=== PATIENT | male | born 1965 | race Caucasian/White ===

== ENCOUNTER 2017-03-09 16:23 | Emergency (ER) | payer BC, MEDICAID ==
[2017-03-09] MEDS ORDERED: TAMSULOSIN 0.4 MG CAP.ER.24H PO STA (17:07)
[2017-03-09] MEDS ORDERED: ONDANSETRON 4 MG/2 ML VIAL IVP STA (17:07)
[2017-03-09] MEDS ORDERED: SODIUM CHLORIDE 0.9% 1,000 ML IV STA (17:07)
[2017-03-09] MEDS ORDERED: KETOROLAC 30 MG/ML 1 ML VIAL IVP STA (17:07)
--- NOTE | 2017-03-09 17:13 | ED ---
General Adult HPI - General Chief complaint: Urogenital Stated complaint: Blood In Urine Time Seen by Provider: 03/09/17 17:01 Source: patient, RN notes reviewed Mode of arrival: ambulatory - History of Present Illness Initial comments: 52-year-old male presents to the emergency Department chief complaint of testicular pain and blood in the urine. Patient denies any history of kidney stones. Patient admits some nausea he states the pain is just a burning type pain and difficulty urinating. Patient states he has no other health history. Patient states she was concerned due to his symptoms were thought that he should be evaluated. Patient states he does not want any narcotic pain medication.Patient denies any recent fever, chills, shortness of breath, chest pain, back pain, vomiting, numbness or tingling, dysuria or hematuria, constipation or diarrhea, headaches or visual changes, or any other current symptoms. - Related Data Home Medications Medication Instructions Recorded Confirmed Aspirin [Adult Low Dose Aspirin EC] 81 mg PO QAM 03/09/17 03/09/17 Lisinopril-Hctz 10-12.5 mg 1 tab PO QAM 03/09/17 03/09/17 [Zestoretic 10-12.5] Pantoprazole [Protonix] 40 mg PO QAM 03/09/17 03/09/17 Previous Rx's Medication Instructions Recorded Levofloxacin [Levaquin] 500 mg PO DAILY #5 tab 03/09/17 Phenazopyridine [Pyridium] 100 mg PO TID #6 tablet 03/09/17 Allergies Allergy/AdvReac Type Severity Reaction Status Date / Time No Known Allergies Allergy Verified 03/09/17 17:22 Review of Systems ROS Statement: Those systems with pertinent positive or pertinent negative responses have been documented in the HPI. ROS Other: All systems not noted in ROS Statement are negative. Past Medical History Past Medical History: Hypertension Additional Past Medical History / Comment(s): HEART VALVE PROBLEM- PT UNSURE WHAT IT IS History of Any Multi-Drug Resistant Organisms: None Reported Additional Past Surgical History / Comment(s): RIGHT ACL Past Psychological History: No Psychological Hx Reported Smoking Status: Former smoker Past Alcohol Use History: Occasional Past Drug Use History: None Reported General Exam General appearance: alert, in distress (Mild) Head exam: Present: atraumatic, normocephalic, normal inspection ENT exam: Present: normal exam, mucous membranes moist Neck exam: Present: normal inspection. Absent: tenderness, meningismus, lymphadenopathy Respiratory exam: Present: normal lung sounds bilaterally. Absent: respiratory distress, wheezes, rales, rhonchi, stridor Cardiovascular Exam: Present: regular rate, normal rhythm, normal heart sounds. Absent: systolic murmur, diastolic murmur, rubs, gallop, clicks GI/Abdominal exam: Present: soft, normal bowel sounds. Absent: distended, tenderness, guarding, rebound, rigid Extremities exam: Present: normal inspection, full ROM, normal capillary refill. Absent: tenderness, pedal edema, joint swelling, calf tenderness Neurological exam: Present: alert, oriented X3 Psychiatric exam: Present: normal affect, normal mood Skin exam: Present: warm, dry, intact, normal color. Absent: rash Course Vital Signs 03/09/17 03/09/17 16:38 19:16 Temperature 97.9 F 97.4 F L Pulse Rate 126 H 71 Respiratory 18 16 Rate Blood Pressure 131/89 121/69 O2 Sat by Pulse 96 95 Oximetry Medical Decision Making - Medical Decision Making 52-year-old male presents emergency department with a chief complaint of testicular pain and hematuria. Patient's lab work is reviewed additional UTI. Patient was given antibiotics here and he'll be sent home on oral antibiotics 3 discussed follow-up with urology and return parameters. We discussed all patient's family's questions. They stated they understood plan. All questions have been answered. They will be discharged home. - Lab Data Result diagrams: 03/09/17 17:35 03/09/17 17:35 Lab Results 03/09/17 03/09/17 03/09/17 Range/Units 17:35 17:35 17:35 WBC 14.0 H (3.8-10.6) k/uL RBC 5.17 (4.30-5.90) m/uL Hgb 17.6 H (13.0-17.5) gm/dL Hct 50.7 (39.0-53.0) % MCV 98.2 (80.0-100.0) fL MCH 34.1 (25.0-35.0) pg MCHC 34.7 (31.0-37.0) g/dL RDW 13.2 (11.5-15.5) % Plt Count 220 (150-450) k/uL Neutrophils % 76 % Lymphocytes % 17 % Monocytes % 5 % Eosinophils % 1 % Basophils % 1 % Neutrophils # 10.6 H (1.3-7.7) k/uL Lymphocytes # 2.3 (1.0-4.8) k/uL Monocytes # 0.7 (0-1.0) k/uL Eosinophils # 0.1 (0-0.7) k/uL Basophils # 0.1 (0-0.2) k/uL Sodium 139 (137-145) mmol/L Potassium 4.1 (3.5-5.1) mmol/L Chloride 105 (98-107) mmol/L Carbon Dioxide 20 L (22-30) mmol/L Anion Gap 14 mmol/L BUN 15 (9-20) mg/dL Creatinine 1.02 (0.66-1.25) mg/dL Est GFR (MDRD) Af Amer >60 (>60 ml/min/1.73 sqM) Est GFR (MDRD) Non-Af >60 (>60 ml/min/1.73 sqM) Glucose 189 H (74-99) mg/dL Calcium 10.0 (8.4-10.2) mg/dL Total Bilirubin 1.3 (0.2-1.3) mg/dL AST 39 (17-59) U/L ALT 57 (21-72) U/L Alkaline Phosphatase 106 (38-126) U/L Total Protein 8.3 H (6.3-8.2) g/dL Albumin 5.0 (3.5-5.0) g/dL Amylase 61 (30-110) U/L Lipase 97 (23-300) U/L Urine Color Dark Red Urine Appearance Turbid (Clear) Urine pH 6.5 (5.0-8.0) Ur Specific [place] 1.028 (1.001-1.035) Urine Protein 3+ H (Negative) Urine Glucose (UA) 3+ H (Negative) Urine Ketones Negative (Negative) Urine Blood Large H (Negative) Urine Nitrite Negative (Negative) Urine Bilirubin Negative (Negative) Urine Urobilinogen <2.0 (<2.0) mg/dL Ur Leukocyte Esterase Moderate H (Negative) Urine RBC >182 H (0-5) /hpf Urine WBC >182 H (0-5) /hpf Urine WBC Clumps Many H (None) /hpf Ur Squamous Epith Cells 13 H (0-4) /hpf Disposition Clinical Impression: UTI (urinary tract infection), Hydrocele Disposition: TRANSFER TO PSYCH HOSP/UNIT Condition: Stable Instructions: Urinary Tract Infection in Men (ED) Additional Instructions: Please use medication as discussed. Please follow up with family doctor if symptoms have not improved over the next two days. Please return to the emergency room if your symptoms increase or worsen or for any other concerns. Prescriptions: Levofloxacin [Levaquin] 500 mg PO DAILY #5 tab Phenazopyridine [Pyridium] 100 mg PO TID #6 tablet Referrals: Nina Powell MD [Primary Care Provider] - 1-2 days Venancio Lobo MD [STAFF PHYSICIAN] - 1-2 days Time of Disposition: 19:28
[2017-03-09 17:52] LABS: Basophils # (A) 0.1 k/uL (0-0.2); Basophils % (A) 1 %; CH 35.3; CHCM 36.1; Eosinophils # (A) 0.1 k/uL (0-0.7); Eosinophils % (A) 1 %; HCT 50.7 % (39.0-53.0); HDW 2.49; HGB 17.6 gm/dL (13.0-17.5); Luc # (Auto) 0.18; Luc % (Auto) 1; Lymphocytes # (A) 2.3 k/uL (1.0-4.8); Lymphocytes % (A) 17 %; MCH 34.1 pg (25.0-35.0); MCHC 34.7 g/dL (31.0-37.0); MCV 98.2 fL (80.0-100.0); Mean Platelet Volume 6.9; Monocytes # (A) 0.7 k/uL (0-1.0); Monocytes % (A) 5 %; Neutrophils # (A) 10.6 k/uL (1.3-7.7); Neutrophils % (A) 76 %; RBC 5.17 m/uL (4.30-5.90); RDW 13.2 % (11.5-15.5); WBC (Perox) 15.33
[2017-03-09 17:57] LABS: Appearance,Urine Turbid (Clear); Bilirubin,Urine Negative (Negative); Glucose,Urine (UA) 3+ (Negative); Ketones,Urine Negative (Negative); Leukocyte Esterase,Urine Moderate (Negative); Nitrite,Urine Negative (Negative); PH, Urine 6.5 (5.0-8.0); Particle Count 8116; Protein,Urine 3+ (Negative); RBC,Urine >182 /hpf (0-5); Specific Gravity,Urine 1.028 (1.001-1.035); Squamous Epithelial Cell,Urine 13 /hpf (0-4); UA Billing (MACRO vs. MICRO) MICRO; Urobilinogen,Urine <2.0 mg/dL (<2.0); WBC,Urine >182 /hpf (0-5)
[2017-03-09 18:03] LABS: ALT 57 U/L (21-72); AST 39 U/L (17-59); Alkaline Phosphatase 106 U/L (38-126); Amylase 61 U/L (30-110); Anion Gap 14 mmol/L; Blood Urea Nitrogen 15 mg/dL (9-20); Carbon Dioxide 20 mmol/L (22-30); Chloride 105 mmol/L (98-107); Glucose 189 mg/dL (74-99); Non-African American GFR(MDRD) >60 (>60 ml/min/1.73 sqM); Potassium 4.1 mmol/L (3.5-5.1); Sodium 139 mmol/L (137-145); Total Bilirubin 1.3 mg/dL (0.2-1.3); Total Protein 8.3 g/dL (6.3-8.2)
--- NOTE | 2017-03-09 18:38 | CT ---
EXAMINATION TYPE: CT abdomen pelvis wo con DATE OF EXAM: 03/09/2017 6:07 PM COMPARISON: NONE HISTORY: Testicular pain with gross hematuria. CT DLP: 1086.00 mGycm Automated exposure control for dose reduction was used. TECHNIQUE: Helical acquisition of images was performed from the lung bases through the pelvis. FINDINGS: LUNG BASES: No significant abnormality is appreciated. LIVER/GB: There is diffuse hypoattenuation of the hepatic parenchyma most compatible with underlying hepatic steatosis. PANCREAS: No significant abnormality is seen. SPLEEN: No significant abnormality is seen. ADRENALS: No significant abnormality is seen. KIDNEYS: Right renal cyst is seen at the mid pole measuring 12 mm. FREE AIR: No free air is visualized RETROPERITONEAL ADENOPATHY: None visualized REPRODUCTIVE ORGANS: No significant abnormality is seen URINARY BLADDER: No significant abnormality is seen. PELVIC ADENOPATHY: None visualized. OSSEOUS STRUCTURES: No significant abnormality is seen. Sclerotic focus is seen within the right edgar ac bone, most likely relating to a benign bone island. BOWEL: No significant abnormality is seen. OTHER: Mild atheromatous changes are seen of the abdominal aorta. Abdominal aorta is of normal course and caliber. Fluid attenuation is seen within the visualized portion of the left hemiscrotum. IMPRESSION: 1. HEPATIC STEATOSIS. 2. PARTIAL VISUALIZATION OF THE LEFT SCROTUM CONTAINING FLUID, MOST LIKELY RELATED TO A HYDROCELE.
--- NOTE | 2017-03-09 19:17 | US ---
EXAMINATION TYPE: US scrotum with doppler. Grayscale and color Doppler Duplex imaging performed of yesenia bacon scrotum. DATE OF EXAM: 03/09/2017 7:06 PM COMPARISON: CT in PACS CLINICAL HISTORY: Pain. EXAM MEASUREMENTS: TESTICLES: Right Testicle: 4.4 x 1.9 x 2.6 cm Left Testicle: 4.1 x 1.8 x 2.8 cm EPIDIDYMIS HEAD: Right Epididymis: 0.8 cm Left Epididymis: 0.8 cm Doppler performed to assess for testicular vascularity; good bilateral color flow and waveforms are s een. There is no evidence of testicular torsion. Presence of hydroceles: Yes, small on the left Presence of varicoceles: Yes, on the right IMPRESSION: 1. Small left hydrocele. 2. Right varicocele. No evidence of obstruction on CT. Follow-up is recommended with urology on a non emergent basis.
[2017-03-09 19:18] VITALS: RESP 16
[2017-03-09 19:46] VITALS: BP 108/65; PULSE 94; TEMP 97.6
== END 2017-03-09 20:06 | disposition home or self-care (01) ==
LOC: EC 16:23
DX: N39.0 Urinary tract infection, site not specified (principal); N43.3 Hydrocele, unspecified; I10 Essential (primary) hypertension; Z87.891 Personal history of nicotine dependence; Z79.82 Long term (current) use of aspirin; Z79.899 Other long term (current) drug therapy
CPT/HCPCS: 99284; 96365; 96375 ×2; 96361; 36415; 80053; 82150; 83690; 85025; 81001; 87040; 87086; 93975; 76870; 74176; J2405; J0696; J1885; 87077; 87186

== ENCOUNTER → 2017-06-13 | Outpatient (CLI) | payer BC ==
[2017-06-13 07:56] LABS: Basophils % (A) 0 %; CH 34.7; CHCM 34.8; Eosinophils # (A) 0.1 k/uL (0-0.7); Eosinophils % (A) 1 %; HCT 50.2 % (39.0-53.0); HDW 2.48; HGB 16.7 gm/dL (13.0-17.5); Luc # (Auto) 0.16; Luc % (Auto) 3; Lymphocytes % (A) 30 %; MCH 33.4 pg (25.0-35.0); MCHC 33.3 g/dL (31.0-37.0); MCV 100.1 fL (80.0-100.0); Macrocytosis Slight; Mean Platelet Volume 7.6; Monocytes # (A) 0.4 k/uL (0-1.0); Monocytes % (A) 6 %; Neutrophils % (A) 60 %; RBC 5.01 m/uL (4.30-5.90); RDW 14.1 % (11.5-15.5); WBC 6.6 k/uL (3.8-10.6); WBC (Perox) 6.48
[2017-06-13 09:03] LABS: ALT 44 U/L (21-72); AST 20 U/L (17-59); Alkaline Phosphatase 130 U/L (38-126); Anion Gap 9 mmol/L; Blood Urea Nitrogen 13 mg/dL (9-20); Calcium 9.8 mg/dL (8.4-10.2); Carbon Dioxide 25 mmol/L (22-30); Chloride 104 mmol/L (98-107); Cholesterol 284 mg/dL (<200); Glucose 300 mg/dL (74-99); HDL Cholesterol 61 mg/dL (40-60); Non-African American GFR(MDRD) >60 (>60 ml/min/1.73 sqM); Potassium 4.2 mmol/L (3.5-5.1); Sodium 138 mmol/L (137-145); Total Bilirubin 1.1 mg/dL (0.2-1.3); Total Protein 7.1 g/dL (6.3-8.2)
[2017-06-13 14:16] LABS: Hemoglobin A1C 12.7 % (4.2-6.1)
== END | disposition home or self-care (01) ==
LOC: LABWHC1 07:00
PROVIDERS: ATTEND Family Medicine
DX: E78.2 Mixed hyperlipidemia (principal); I10 Essential (primary) hypertension; R73.9 Hyperglycemia, unspecified
CPT/HCPCS: 36415; 80053; 80061; 83036; 85025

== ENCOUNTER → 2017-10-16 | Outpatient (CLI) | payer BC ==
[2017-10-16 08:17] LABS: Basophils # (A) 0.1 k/uL (0-0.2); Basophils % (A) 1 %; Eosinophils # (A) 0.1 k/uL (0-0.7); Eosinophils % (A) 1 %; HDW 2.48; HGB 15.6 gm/dL (13.0-17.5); Luc # (Auto) 0.13; Luc % (Auto) 2; Lymphocytes # (A) 2.4 k/uL (1.0-4.8); Lymphocytes % (A) 38 %; MCH 33.1 pg (25.0-35.0); MCHC 33.9 g/dL (31.0-37.0); MCV 97.5 fL (80.0-100.0); Mean Platelet Volume 6.9; Monocytes # (A) 0.4 k/uL (0-1.0); Monocytes % (A) 6 %; Neutrophils # (A) 3.2 k/uL (1.3-7.7); Neutrophils % (A) 52 %; RBC 4.72 m/uL (4.30-5.90); RDW 12.5 % (11.5-15.5); WBC 6.1 k/uL (3.8-10.6); WBC (Perox) 5.77
[2017-10-16 08:25] LABS: ALT 36 U/L (21-72); AST 26 U/L (17-59); Alkaline Phosphatase 67 U/L (38-126); Anion Gap 10 mmol/L; Blood Urea Nitrogen 18 mg/dL (9-20); Carbon Dioxide 27 mmol/L (22-30); Chloride 103 mmol/L (98-107); Cholesterol 211 mg/dL (<200); Glucose 105 mg/dL (74-99); HDL Cholesterol 71 mg/dL (40-60); Non-African American GFR(MDRD) >60 (>60 ml/min/1.73 sqM); Potassium 4.4 mmol/L (3.5-5.1); Sodium 140 mmol/L (137-145); Total Bilirubin 0.7 mg/dL (0.2-1.3); Total Protein 7.3 g/dL (6.3-8.2)
== END | disposition home or self-care (01) ==
LOC: LABWHC1 06:34
PROVIDERS: ATTEND Family Medicine
DX: E78.2 Mixed hyperlipidemia (principal); I10 Essential (primary) hypertension; E11.65 Type 2 diabetes mellitus with hyperglycemia
CPT/HCPCS: 36415; 80053; 80061; 83036; 85025

== ENCOUNTER → 2022-10-21 | Outpatient (CLI) | payer BC ==
[2022-10-21 12:08] LABS: African American GFR (CKD) >90 (>60 ml/min/1.73 sqM); Blood Urea Nitrogen 15 mg/dL (9-20); Non-African American GFR(CKD) >90 (>60 ml/min/1.73 sqM)
--- NOTE | 2022-10-21 12:44 | CT ---
EXAMINATION TYPE: CT soft tissue neck w con CT DLP: 483.9 mGycm, Automated exposure control for dose reduction was used. DATE OF EXAM: 10/21/2022 12:38 PM COMPARISON: None. 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 Axial sections with coronal and sagittal reformats were obtained. FINDINGS: Brain: Visualized portions are grossly unremarkable. Orbits: Unremarkable Sinuses: The mastoid air cells are clear. Mild mucosal thickening of the right maxillary sinus. Suprahyoid Neck: The oropharynx, oral cavity, parapharyngeal and retropharyngeal spaces are clear and symmetric. The nasopharynx is unremarkable. Bilateral tonsilliths. Infrahyoid Neck: The larynx, hypopharynx, and supraglottic area are clear and symmetric. Parotid Glands: Unremarkable. Submandibular Glands: Unremarkable. Musculoskeletal: No acute osseous pathology. No aggressive osseous lesion. Lymph nodes: Multiple nonenlarged lymph nodes are seen along both anterior chains of the neck. Vascular structures: Minimal atherosclerotic calcifications of the internal carotid arteries. Thoracic Inlet/airway: Airway is patent. Moderate centrilobular emphysematous changes of the visualiz ed lungs. Soft tissues/Thyroid: Defect along the lower lip which may represent known squamous cell carcinoma. T hyroid and remainder of the soft tissues are unremarkable. Other: none. IMPRESSION 1. No evidence for metastatic disease within the visualized neck. No lymphadenopathy. 2. Moderate COPD changes.
== END | disposition home or self-care (01) ==
LOC: RADCTMAIN 11:29
PROVIDERS: ATTEND Otolaryngology
DX: C44.02 Squamous cell carcinoma of skin of lip (principal); J44.9 Chronic obstructive pulmonary disease, unspecified
CPT/HCPCS: 82565; 84520; 70491; 36415; Q9967

== ENCOUNTER 2022-11-13 11:12 | Day surgery (SDC) | payer BC ==
[~2022-11-13 11:12] MED LIST: DEXAMETHASONE SOD PHOSPHATE 4 MG/ML 1 ML VIAL IV ONE; DEXAMETHASONE SOD PHOSPHATE 4 MG/ML 1 ML VIAL IV PRN; FAMOTIDINE 20 MG/2 ML VIAL IV PRN; HYDROmorphone 0.5 MG/0.5 ML SYRINGE IVP PRN; LACTATED RINGERS 1,000 ML IV SCH; LIDOCAINE 1% (10MG/ML) FOR IV START INTRADERMA PRN; MIDAZOLAM 2 MG/2 ML VIAL IV PRN; ONDANSETRON 4 MG/2 ML VIAL IVP ONE; ONDANSETRON 4 MG/2 ML VIAL IVP PRN; metroNIDAZOLE-NS PMX 500 MG in SALINE 1 100ML.BAG IVPB PRN
[2022-11-13] MEDS ORDERED: LACTATED RINGERS 1,000 ML IV ONE ×2 (11:38→16:03)
[2022-11-13 11:50] LABS: Glucose,Whole Blood 117 mg/dL (70-110)
[2022-11-13 12:11] LABS: Basophils % (A) 1 %; Eosinophils # (A) 0.1 k/uL (0-0.7); Eosinophils % (A) 1 %; HCT 47.7 % (39.0-53.0); HGB 16.6 gm/dL (13.0-17.5); Lymphocytes # (A) 2.2 k/uL (1.0-4.8); Lymphocytes % (A) 33 %; MCH 33.6 pg (25.0-35.0); MCHC 34.7 g/dL (31.0-37.0); MCV 96.8 fL (80.0-100.0); Mean Platelet Volume 7.4; Monocytes # (A) 0.5 k/uL (0-1.0); Monocytes % (A) 7 %; Neutrophils # (A) 3.8 k/uL (1.3-7.7); Neutrophils % (A) 56 %; Platelet Count 157 k/uL (150-450); RBC 4.93 m/uL (4.30-5.90); RDW 12.6 % (11.5-15.5); WBC 6.7 k/uL (3.8-10.6)
[2022-11-13 12:32] LABS: African American GFR (CKD) >90 (>60 ml/min/1.73 sqM); Anion Gap 9 mmol/L; Blood Urea Nitrogen 13 mg/dL (9-20); Calcium 9.3 mg/dL (8.4-10.2); Carbon Dioxide 23 mmol/L (22-30); Chloride 108 mmol/L (98-107); Glucose 123 mg/dL (74-99); Non-African American GFR(CKD) >90 (>60 ml/min/1.73 sqM); Potassium 4.1 mmol/L (3.5-5.1); Sodium 140 mmol/L (137-145)
[2022-11-13] MEDS ORDERED: MIDAZOLAM 2 MG/2 ML VIAL ONE (14:19)
[2022-11-13] MEDS ORDERED: LIDOCAINE 2% INJ 20 MG/ML (2 ML VIAL) ONE (14:19)
[2022-11-13] MEDS ORDERED: PROPOFOL 10 MG/ML 20 ML VIAL IV ONE (14:19)
[2022-11-13] MEDS ORDERED: fentaNYL (PF) 50 MCG/ML 2 ML AMP ONE (14:19)
[2022-11-13] MEDS ORDERED: SUCCINYLCHOLINE CHLORIDE 200 MG/10 ML VIAL IV ONE (14:19)
[2022-11-13] MEDS ORDERED: LIDOCAINE 1%-EPI 1:100,000 20 ML VIAL SQ ONE ×4 (14:20)
[2022-11-13] MEDS ORDERED: FERRIC SUBSULFATE (MONSELS) JAR TOPICAL ONE (15:23)
[2022-11-13 16:34] VITALS: TEMP 97.3
--- NOTE | 2022-11-13 16:41 | P.OP ---
Date of Procedure: 11/13/22 Preoperative Diagnosis: 4.1 x 4.2 cm right lower lip cancer 4.2 x 2 cm left nasal squamous cell carcinoma 2 cm right back lesion Postoperative Diagnosis: Same Procedure(s) Performed: Excision of a 4.1 x 4.2 cm right lower lip squamous cell carcinoma with frozen section and reconstruction with use of a bilateral advancement flap closure measuring 8 x 8 cm Excision of a 4.2 x 2 cm left nasal skin cancer with frozen section and reconstruction with use of a bilateral advancement flap closure with a secondary defect measuring 8 x 4 cm Shave biopsy right back lesion 2 cm Anesthesia: GETA Surgeon: Wilman [place] Estimated Blood Loss (ml): 20 Pathology: other (Lip, nose, right back) Condition: stable Disposition: PACU Indications for Procedure: Patient had 3 lesions that are problematic 1 on the left nose 1 on a lower lip and one on the right back surgical removal was recommended frozen section will be performed. All risks, benefits, and alternative therapies were discussed in detail. Consent was obtained and all questions were answered. Operative Findings: Frozen section margins negative for tumor on the left frozen section diagnosis left nasal lesion was a squamous cell carcinoma Description of Procedure: Patient was taken to the operative room placed in the supine position a general inhalation anesthetic was administered to the patient by mask and subsequently intubated with a cuffed endotracheal tube by the department of anesthesia with a functioning IV line in place. Patient was monitored throughout the entire case by the department of anesthesia. The face and back were sterilely prepped and draped in usual fashion and the lower lip and nasal lesion was marked. The lower lip lesion was marked which was quite large measuring 4.1 x 4.2 cm we anesthetize the area we did marked the vermilion border for reapproximation and with use of a 15 blade this lesion was removed measuring 4.1 x 4.2 cm. We sent this for frozen section and all margins came back negative for tumor we then did a reconstructive advancement flap closure measuring defect size of 8 x 8 cm is a secondary defect. We closed the lip appropriately we did close the muscular layer with a 4-0 Monocryl we closed the vermilion border with a 5-0 Prolene we closed the skin with use of a 5-0 Prolene we closed the mucosa with use of a 40 rapid Vicryl in a running nonlocking fashion excellent approximation was obtained and Steri-Strips were utilized. The left nasal lesion underwent a shave biopsy with a Dermabond blade and the frozen section came back showing a squamous cell carcinoma a wider resection was performed measuring 4.2 x 2 cm this was excised with a 15 blade. We did extensive undermining and advancement flaps were utilized to close this large nasal defect. Secondary defect measured 8 x 4 cm. We then closed the defect with use of 4-0 Monocryl deeply we closed the nasalis muscle with 4-0 Monocryl we closed the skin with a 5-0 Prolene in a running locking fashion excellent approximation was obtained. The right back lesion was anesthetized and a shave biopsy was performed and Monsel's was placed over the site with a bandage. Patient was taken to postanesthesia recovery in excellent condition and tolerated this well.
[2022-11-13 17:23] VITALS: RESP 20
[2022-11-13 18:12] VITALS: BP 122/78; PULSE 94
== END 2022-11-13 18:25 | disposition home or self-care (01) ==
LOC: OR 11:12
PROVIDERS: ATTEND Otolaryngology
DX: C00.1 Malignant neoplasm of external lower lip (principal); C76.0 Malignant neoplasm of head, face and neck; E11.9 Type 2 diabetes mellitus without complications; K21.9 Gastro-esophageal reflux disease without esophagitis; Z79.84 Long term (current) use of oral hypoglycemic drugs; Z79.899 Other long term (current) drug therapy
CPT/HCPCS: 80048; 85025; 14301; 14302; 13100; J2250; J0330; J1100; J0690; J2405; J3010; J2704; J2001; 88305; 88331

== ENCOUNTER → 2022-12-27 | Outpatient (CLI) | payer BC | END | disposition home or self-care (01) | LOC: RADCTMAIN 06:54 | PROVIDERS: ATTEND Family Medicine | DX: Z53.9 Procedure and treatment not carried out, unspecified reason (principal) ==

== ENCOUNTER → 2023-01-10 | Outpatient (CLI) | payer BC ==
--- NOTE | 2023-01-10 10:07 | CTL ---
EXAMINATION TYPE: CT Low Dose Lung DATE OF EXAM: 01/10/2023 7:29 AM CLINICAL INDICATION:Male, 57 years old with history of Z87.891 personal hx tobacco dependence; Person al hx tobacco dependence. 1pk/dayx44 years. No concerns at this time , history of tobacco use. COMPARISON: None. TECHNIQUE: Multiple axial non-contrast scans were obtained from approximately the lung apices through the upper abdomen. Coronal and sagittal reformatted images were obtained. Low dose technique was uti lized. CT DLP: 95.70 mGycm, Automated exposure control for dose reduction was used. CT Contrast: Contrast used: None Oral contrast used: None FINDINGS: ======== Lack of intravenous contrast and low dose technique limits the evaluation of the vascular and soft ti ssue structures. LUNGS: No evidence of pulmonary fibrosis. No evidence of focal consolidation, pneumothorax or pleural effusion. Centrilobular emphysema changes are present throughout the lungs. Nodules: RUL: None. RML: None. RLL: None. RAGHU: Left intrafissural lymph node series 5 image 16 LLL: None. AIRWAY: Patent and unremarkable. HEART: Size within normal limits. Mild coronary artery calcifications MEDIASTINUM: No gross evidence of adenopathy. VASCULATURE: No aortic aneurysm. Scattered calcifications of the arterial vasculature. MUSCULOSKELETAL: No acute osseous abnormalities, mild multilevel disc degeneration changes throughout the spine SOFT TISSUES/LYMPH NODES: Unremarkable. LOWER NECK: No significant findings. UPPER ABDOMEN: No significant findings. IMPRESSION: 1. No clinically significant pulmonary nodules. 2. Moderate emphysema CT LUNG RAD AND CT CHEST RECOMMENDATION: Lung-Rad 2 Benign Appearance or Behavior: Continue annual sc reening with LDCT in 12 months. S Modifier (other clinically significant findings): None Recommend smoking cessation (if current smoker), or continuation of smoking cessation (if prior smoke r). Annual screening for lung cancer with low-dose computed tomography is recommended in adults ages 55 to 77 years who have a 30 pack-year smoking history and currently smoke or have quit within the pa st 15 years. Screening should be discontinued once a person has not smoked for 15 years or develops a health problem that substantially limits life expectancy or the ability or willingness to have curat monae lung surgery. Lung rads 2021 [email or web address]
== END | disposition home or self-care (01) ==
LOC: RADCTMAIN 07:03
PROVIDERS: ATTEND Family Medicine
DX: Z12.2 Encounter for screening for malignant neoplasm of respiratory organs (principal); J43.2 Centrilobular emphysema; Z87.891 Personal history of nicotine dependence
CPT/HCPCS: 71271

== ENCOUNTER → 2024-01-15 | Outpatient (CLI) | payer BC ==
--- NOTE | 2024-01-15 13:01 | CTL ---
EXAMINATION TYPE: CT Low Dose Lung DATE OF EXAM ORDERED: 01/15/2024 HISTORY: Lung cancer screening CT DLP: 118.[address] CTDI: 3.10 mGy Automated exposure control for dose reduction was used. COMPARISON: 01/10/2023 TECHNIQUE: Low dose computed tomography scan was performed through the chest at 1 mm thick sections a nd reconstructed images in multiple planes at 1 mm and [address] DIAGNOSTIC QUALITY: Satisfactory There are marked emphysematous changes with an upper lobe predominance. There is no suspicious lung mass or nodule. There is no abnormal airspace/consolidative density or interstitial density. There is no pleural effusion, pleural thickening or pneumothorax. There is mild borderline aneurysmal dilatation of ascending thoracic aorta which is a 4 cm in size. There is no mediastinal, hilar or axillary adenopathy. No focal osseous lesions are seen. IMPRESSION: 1. Lung RADS category 1 negative. Continue routine screening at yearly intervals. 2. Marked emphysematous changes. 3. No acute cardiopulmonary disease. 4. Mild aneurysmal dilatation of the ascending thoracic aorta which measures 4 cm.
--- NOTE | 2024-01-15 13:22 | CA ---
Exercise Stress Test Report Name: Mejia Campbell Exam Date: 01/15/2024 10:29 Exam Location: [place] Stress Ht (in): 71 Wt (lb): 200 BSA: 2.11 Ordering Phys: Nina Powell MD Referring Phys: Nina Powell MD Technologist: ayaka love Age: 58 Gender: M : 1965 Procedure CPT: Indications: R07.9 CHEST PAIN ICD-10 Codes: Patient History: CP, AISHA, HTN, DM, CHOL, TOB (VAPE) Medications: TAMOSOLIN, ROVASTATIN, TREGENTIN, PIOGLITAZONE, LISINOPRIL, PANTAPRAZOL, METFORMIN Meds past 24 hrs: Pretest Chest Pain: STRESS TEST Yunior Protocol Exercise Duration (min:sec): 05:[address] Depressions (mm): Angina Score: Carr Score: Resting HR (bpm): 90 Peak HR (bpm): 147 Resting BP (mmHg): 138 / 81 Peak BP (mmHg): 199 / 88 MPHR: 161 Target HR: 137 % MPHR: 91 METS: 7.1 Total Dose: Peak Dose: Atropine: Double Product: 88410 BP Response: Stress Termination: Reached target heart rate Stress Symptoms: Dyspnea Stress Summary: ECG ANALYSIS Resting ECG: Normal sinus rhythm, occasional PVCs Stress ECG: No significant ST-T wave changes diagnostic for ischemia by ST segment analysis. There were no sustained arrhythmias. There were occasional monomorphic PVCs seen throughout the stress test CONCLUSIONS Poor exercise tolerance for age achieving only 7.1 METS Mildly hypertensive response to treadmill exercise Nonischemic ECG response to treadmill exercise Overall normal treadmill stress test Monomorphic PVCs during the stress test study. May consider Holter monitor to quantify these PVCs Dr Obdulio Nascimento (Electronically Signed) Final Date: 15 January 2024 13:22
--- NOTE | 2024-01-15 13:23 | NM ---
EXAMINATION TYPE: NM stress cardiolite complete DATE OF EXAM: 01/15/2024 COMPARISON: NONE CLINICAL INDICATION: Male, 58 years old with history of R07.9 CHEST PAIN; TECHNIQUE: After the intravenous administration of 10.1 mCi Tc 99m Sestamibi - Rest images obtained 60 minutes post injection. The patient exercised using a SOHA protocol and 1 minute prior to peak exercise was injected with 25.9 mCi Tc 99m Sestamibi - Stress images obtained 20 minutes post injecti on. FINDINGS: Targeted heart rate was achieved during performance of the study. Review of stress and rest SPECT tiana ges demonstrates fixed reduced uptake involving the inferior wall which likely is artifactual.. [place] d analysis shows normal wall motion with an estimated left ventricular ejection fraction of 73 %. IMPRESSION: 1. Reduced fixed uptake involving the inferior and inferoseptal alvarez felt to be most likely artifact ual but should be correlated clinically. 2. Ejection fraction is normal at 73%.
== END | disposition home or self-care (01) ==
LOC: RADNMMAIN 07:55
PROVIDERS: ATTEND Family Medicine
DX: Z12.2 Encounter for screening for malignant neoplasm of respiratory organs (principal); J43.9 Emphysema, unspecified; R07.9 Chest pain, unspecified; I71.21 Aneurysm of the ascending aorta, without rupture; E78.00 Pure hypercholesterolemia, unspecified; I10 Essential (primary) hypertension; E11.9 Type 2 diabetes mellitus without complications; Z87.891 Personal history of nicotine dependence
CPT/HCPCS: 93017; 71271; 78452; A9500

== ENCOUNTER → 2025-01-21 | Outpatient (CLI) | payer BC ==
--- NOTE | 2025-01-21 08:01 | CTL ---
EXAMINATION TYPE: CT Low Dose Lung DATE OF EXAM ORDERED: 01/21/2025 COMPARISON: 01/15/2024 CLINICAL INDICATION: Male, 59 years old with history of Z12.2 SCREENING LUNG CA Z87.891 NICOTINE DEPE NDENC; PHH, Former smoker, was 1 ppd x 44 years, quit 2021, no concerns,, Lung cancer screening, Hist ory of Smoking/tobacco use. TECHNIQUE: Low dose computed tomography scan was performed through the chest at 1 mm thick sections a nd reconstructed images in multiple planes at 1 mm and [address] DLP: [address] CTDI: 1.84 mGy Automated exposure control for dose reduction was used. CT DIAGNOSTIC QUALITY: Satisfactory Findings: There are moderate to marked emphysematous changes. There is no suspicious lung mass or nodule. There is no lung consolidation or abnormal interstitial density. There is no pleural effusion or pneumothorax. The great vessels and heart are normal in size. There is no mediastinal, hilar or axillary adenopathy. Limited scanning through the upper abdomen reveals no gross abnormality. There are no focal osseous lesions. IMPRESSION: 1. Lung RADS category 1 negative.. Continue routine screening at yearly intervals. 2. No acute cardiopulmonary disease. 3. Moderate to marked emphysematous changes. [facility], , 01/21/2025 7:58 AM
== END | disposition home or self-care (01) ==
LOC: RADCTMAIN 07:14
PROVIDERS: ATTEND Family Medicine
DX: Z12.2 Encounter for screening for malignant neoplasm of respiratory organs (principal); J43.9 Emphysema, unspecified; Z87.891 Personal history of nicotine dependence
CPT/HCPCS: 71271